=== PATIENT | male | born 2000 | race Caucasian/White ===

== ENCOUNTER 2018-10-29 11:34 | Emergency (ER) | payer OTHER ==
[~2018-10-29] VITALS: Wt 135.4 kg
[2018-10-29 11:36] VITALS: BP 144/76; PULSE 84; RESP 17
--- NOTE | 2018-10-29 13:54 | ERD ---
ER Documentation Chief Complaint Chief Complaint RIGHT HAND PAIN X2 WEEKS, DENIES INJURY HPI 18-year-old [id number]-ftuqduub male presents the emergency department complaining of right hand pain. Patient states that when he goes to sleep at night he occasionally wakes up during the night with his family feeling white and uncomfortable. This then goes away. He reports no trauma, but states the use his hand significantly during work. He reports no numbness, tingling, loss of function. ROS All systems reviewed and are negative except as per history of present illness. Medications Home Meds No Active Prescriptions or Reported Meds Allergies Allergies: Coded Allergies: No Known Allergy (Unverified , 11/02/14) PMhx/Soc Medical and Surgical Hx: pt denies Medical Hx, pt denies Surgical Hx History of Surgery: No Anesthesia Reaction: No Hx Neurological Disorder: No Hx Respiratory Disorders: No Hx Cardiac Disorders: No Hx Psychiatric Problems: No Hx Miscellaneous Medical Probl: No Hx Alcohol Use: No Hx Substance Use: No Hx Tobacco Use: No Smoking Status: Never smoker Physical Exam Vitals Vital Signs Date Temp Pulse Resp B/P (MAP) Pulse Ox O2 O2 Flow FiO2 Time Delivery Rate 10/29/18 97.9 84 17 144/76 98 11:36 (98) Physical Exam General: well developed, well nourished, in no distress. Neuro: Normal speech, gait, balance Extremity: The right hand, the area of concern, shows no evidence of trauma or tenderness. Patient has full range of motion about all joints and about the fingers with no evidence of tendon concerns. Patient has normal capillary refill in all 5 fingers with a normal radial and ulnar pulse. Patient is totally neurovascular intact in all 3 nerve areas of the hand. Procedures/MDM Patient was taken to a room, seen and examined Medical decision m[age]-year-old [id number]-zagjywjn male presents with nonspecific symptoms of his hand. He may have a nonspecific Raynaud's phenomenon, but has no indication of true functional deficit, vascular deficit or other concerns. He has been reassured and appropriate for outpatient care. Departure Diagnosis: Primary Impression: Pain of hand Condition: Stable DAVEY,JASON Oct 29, 2018 13:54
== END 2018-10-29 14:09 | disposition home or self-care (01) ==
LOC: FTE 11:34
DX: M79.641 Pain in right hand (principal)
CPT/HCPCS: 99282